=== PATIENT | female | born 1970 | race Caucasian/White ===

== ENCOUNTER 2019-05-06 07:14 | Day surgery (SDC) | payer OTHER ==
[~2019-05-06] VITALS: Ht 152.4 cm; Wt 97.5 kg
[2019-05-06 08:12] VITALS: BP 109/61
[2019-05-06 14:55] VITALS: BP 132/82
== END 2019-05-06 11:15 | disposition home or self-care (01) ==
LOC: DS 07:14 → OR 09:00 → GI 09:30 → OR 09:30 → DS 11:15
DX: K59.00 Constipation, unspecified (principal); D12.0 Benign neoplasm of cecum; K57.30 Diverticulosis of large intestine without perforation or abscess without bleeding; Z90.49 Acquired absence of other specified parts of digestive tract; Z91.040 Latex allergy status; Z79.899 Other long term (current) drug therapy
CPT/HCPCS: 45378; J1200; J1610; J2250; J2310; J3010; J3490